=== PATIENT | male | born 1940 | race Caucasian/White ===

== ENCOUNTER 2018-06-27 05:28 | Inpatient (IN) | payer OTHER ==
[2018-06-18 12:57] LABS: URINE BILIRUBIN NEGATIVE (Negative); URINE BLOOD NEGATIVE (Negative); URINE CLARITY CLEAR; URINE COLOR YELLOW; URINE GLUCOSE-RANDOM* NEGATIVE (Negative); URINE KETONES NEGATIVE (Negative); URINE LEUKOCYTES-REFLEX NEGATIVE (Negative); URINE NITRITE-REFLEX NEGATIVE (Negative); URINE PROTEIN (DIPSTICK) NEGATIVE (Negative); URINE SPECIFIC GRAVITY >= 1.030 (1.005-1.035); URINE UROBILINOGEN 0.2 E.U./dl (0.2-1.0)
[2018-06-18 12:58] LABS: HEMOGLOBIN 14.8 gm/dL (14.0-18.0); MCH 32.5 pg (26.0-34.0); MCHC 33.5 g/dL (28.0-37.0); MCV 96.9 fL (80.0-100.0); RBC 4.54 mil/uL (4.50-6.00); RDW 13.2 % (10.5-14.5); WBC 6.3 thou/uL (4.0-11.0)
[2018-06-18 13:06] LABS: ALBUMIN 4.2 g/dL (3.4-5.0); CALCIUM 9.7 mg/dL (8.5-10.1); CREATININE 1.2 mg/dL (0.7-1.3); POTASSIUM 4.5 mmol/L (3.5-5.1)
[2018-06-18 13:13] LABS: INR 1.1
[~2018-06-27] VITALS: Ht 180.3 cm; Wt 85.7 kg
--- NOTE | ~2018-06-27 | O ---
[facility] [place] [address] OPERATIVE REPORT Name: SUSAN TORRES Room #: 458-P [facility] IN M.R.#: [id number] Admission: 06/27/18 ������������������ Attend Phys: Isaiah Maher MD Discharge: ������������������ Date of : 44 Report #: [id number] THIS REPORT FOR: //name// CC: Alessandro Maher PREOPERATIVE DIAGNOSES: 1. Right knee osteoarthritis. 2. Left knee osteoarthritis. POSTOPERATIVE DIAGNOSES: 1. Right knee osteoarthritis. 2. Left knee osteoarthritis. PROCEDURES: 1. Right total knee arthroplasty with Navio robotic assistance. 2. Intraarticular cortisone injection in the left knee. SURGEON: Isaiah Maher MD KITCHEN MECHANIC: Jennifer Pandey PA-C. INDICATIONS FOR ASSISTANCE: Throughout the case, extensive retraction and manipulation of the knee was required. This was afforded to me by my admissions assistant. ANESTHESIA: LMA with an adductor canal block. IMPLANTS: [employer] size 7 Legion cobalt chrome posterior stabilized femur, a size 5 tibia, a size 11 highly constrained polyethylene and a size 35 patella. TOURNIQUET TIME: 70 minutes. ESTIMATED BLOOD LOSS: 25 mL. COMPLICATIONS: None. SPECIMENS: None. CONDITION UPON LEAVING THE OPERATING ROOM: Stable. INDICATION FOR PROCEDURE: The patient is a 78-year-old gentleman with bilateral knee osteoarthritis. His right knee has failed conservative measures and he elected for right total knee arthroplasty. In addition, he requested intraarticular cortisone injection of the left knee while in the operating room. DESCRIPTION OF PROCEDURE: Risks, benefits, alternatives and complications were [facility] [address] [place] [address] OPERATIVE REPORT Name: SUSAN TORRES Room #: 458-P ADM IN M.R.#: [id number] Admission: 06/27/18 ������������������ Attend Phys: Isaiah Maher MD Discharge: ������������������ Date of : 42 Report #: [id number] discussed in detail with the patient including but not limited to risk of anesthesia, risk of damage to nerves, arteries and blood vessels, risk for infection and bleeding, risk for continued knee pain and need for reoperation. Informed consent was obtained from the patient. His right knee was appropriately marked in the preoperative holding area. IV Ancef was given for preoperative antibiotics. He was brought to the operating room and placed in the supine position on the operating room table. LMA anesthesia was induced without complication. Tourniquet was placed on the right thigh. Right lower extremity was prepped and draped in normal sterile fashion. Timeout was performed properly identifying the patient and procedure as well as the instrumentation. All in the operating room were in agreement. Right lower extremity was exsanguinated. Tourniquet was inflated. Tourniquet time was 70 minutes. Standard midline approach to the knee was made with a 10 blade through the skin. Dissection was taken down sharply to the fascia. Deep flaps were developed medially and laterally. A fresh 10 blade was used to make a medial parapatellar arthrotomy and the knee was inspected. There was severe medial compartment osteoarthritis with mild patellofemoral and lateral compartment involvement, so it was decided to proceed with total knee arthroplasty. ACL and PCL were removed sharply. Reference pins were placed in the femur and the tibia for the Navio system and the knee was digitally mapped using the [employer] robotic system. Intraoperative plan was made and we sized a size 7 femur, a size 5 tibia, a size 11 polyethylene. After acceptance of the intraoperative plan, the distal femoral cut was made with the Navio bur. The distal femoral cutting block was then placed and the anterior, posterior and chamfer cuts were made. Attention was turned to the tibia. Remainder of the menisci removed with Bovie cautery. Tibial resection guide was then made using the tibial resection guide placed with the Navio system. Tibial resection was made. Flexion and extension gaps were then checked and found to have good balance medially but some laxity laterally. It was felt this could be made up for with a highly constrained implant as needed. The tibia was sized, found to be a size 5. A size 5 tibial trial was placed, pinned and punched and a size 7 femoral trial was placed and the box cut was made. This was then trialed with a size 11 standard polyethylene. Knee was taken through range of motion, found to have good balance medially but 4 mm of laxity laterally compared to 1 medially and it was felt that a highly constrained polyethylene will be needed. This was then trialed with a highly constrained size 11 and found to have good balance. A 9 mm was then taken off the posterior surface of the patella and a size 35 patellar trial button was placed. Knee was taken through range of motion, found to be stable, found to have good patellar tracking. Trial components were removed. Bone ends were thoroughly irrigated with normal saline. A final size 5 tibia, a size 7 Legion cobalt chrome posterior stabilized femur and a size 35 patella were cemented in place using standard cementation techniques. While the cement cured, a periarticular injection consisting of morphine, ropivacaine, epinephrine and Toradol was placed around the knee joint capsule. After the cement cured, the tourniquet was deflated. Hemostasis was obtained with Bovie cautery. A final size 11 highly constrained polyethylene was placed. Alyssa chavira [facility] [address] [place] [address] OPERATIVE REPORT Name: SUSAN TORRES Room #: 458-P [facility] IN [facility]#: [id number] Admission: 06/27/18 ������������������ Attend Phys: Isaiah Maher MD Discharge: ������������������ Date of : 42 Report #: [id number] vancomycin was placed deep in the joint. The fascia was closed with 0 Vicryl, skin was closed with 2-0 Vicryl and 3-0 Monocryl. Dermabond and a ONEL dressing was applied and 80 mg of Depo-Medrol was then injected into the left knee joint under sterile conditions. The patient tolerated this procedure well and went to the recovery room under care of Anesthesia postoperatively. ��������������������������������������������� ���������������������������������������� By: ��������������������������������������������� 1655 1949 Isaiah Maher MD /nt
[~2018-06-27 05:28] MED LIST: ACYCLOVIR 800800 MG PO; CALCIUM 500 +1 EAC5 PO; FISH OIL 1,001000 M2 PO; GLUCOSAMINE CH1 EAC2 PO; IRON325 PO; L-LYSINE500 M1 PO; LIPITOR 20 MG T20 M1 PO; UNICOMPLEX M TA1 TA1 PO; VERAPAMIL ER180 M1 PO; VITAMINC500 PO
[2018-06-27 13:00] VITALS: BP 149/74
[2018-06-27 18:04] VITALS: BP 124/60
[2018-06-27 18:28] VITALS: BP 121/59
[2018-06-27 19:54] VITALS: BP 137/68
[2018-06-27 20:40] VITALS: BP 130/63
[2018-06-28 04:38] VITALS: BP 121/66
[2018-06-28 05:52] LABS: HEMATOCRIT 37.6 % (42.0-52.0); HEMOGLOBIN 13.1 gm/dL (14.0-18.0); MCH 33.5 pg (26.0-34.0); MCHC 34.8 g/dL (28.0-37.0); MCV 96.3 fL (80.0-100.0); RBC 3.91 mil/uL (4.50-6.00); RDW 12.7 % (10.5-14.5); WBC 11.3 thou/uL (4.0-11.0)
--- NOTE | 2018-06-28 06:36 | NUR ---
Assumed care at 1845. Pt resting in bed. VSS. Circulation to right leg intact. Pt denies any pain. He hasnt left the bed with me. Dressing on right knee CDI with ONEL dressing intact. He has SCDs and zachery horse. No identified needs at the moment. Will continue to monitor.
[2018-06-28 07:22] VITALS: BP 118/54
[2018-06-28] MEDS ORDERED: TRI-BUFFERED A325 M1 PO (12:24)
[2018-06-28] MEDS ORDERED: NEURONTIN 300300 M1 PO (12:24)
--- NOTE | 2018-06-28 14:04 | NUR ---
PT ADMITTED RELATED TO RIGHT TOTAL KNEE REPLACEMENT. CM REVIEWED CHART AND SPOKE WITH CARE TEAM. CM MET WITH PT AT BEDSIDE THIS DAY. PT IS A&O X4. CM RLE INTRODUCED. PT INDICATED HE LIVES IN A HOUSE WITH HIS WITH 3 STEPS TO ENTER AND NO STEPS INSIDE. PT INDICATED ALL NEEDS ON 1 LEVEL UPON DC. PT INDICATED HE IS SET UP WITH OP PT AT [facility] TOMORROW. PT WAS ISSUED A FWW FOR HOME USE BY [employer]. IT IS ANTIPATED THAT PT WILL BE MEDICALLY STABLE TO DISHCARGE HOME THIS DAY.
[2018-06-28 15:09] VITALS: BP 118/54
--- NOTE | 2018-06-28 16:45 | NUR ---
PATIENT DOING VERY WELL POSTOPERATIVELY. RIGHT KNEE ONEL DRESSING INTACT AND COMPRESSED. 2 STITCHES BELOW DRESSING OOZING SMALL AMOUNT OF BLOOD. CLEANED AND APPLIED GAUZE AND OPSITE. TOLERATING REGULAR DIET. VOIDING WITHOUT DIFFICULTY. AMBULATED WITH PHYSICAL THERAPY WITH USE OF WALKER AND DID VERY WELL. HARSH WITH PHYSICAL THERAPY APPROVED DISCHARGE. HAD MINIMAL PAIN DUE TO ADDUCTER BLOCK. DISMISSED IN STABLE CONDITION.
== END 2018-06-28 15:30 | disposition home or self-care (01) | DRG 470 ==
LOC: PRE → 4W 05:28 → TBA 05:28 → PRE 05:50 → 4W 18:08 → ENTRNSPT 06-28 16:00
PROVIDERS: ADMIT Orthopaedic Surgery
DX: M17.0 Bilateral primary osteoarthritis of knee (principal); Z79.82 Long term (current) use of aspirin; Z79.899 Other long term (current) drug therapy
CPT/HCPCS: 10047; 50010; 50101; 50415; 50954; 51130; 51225; 53000; 53078; 53364; 54118; 56527; 56528; 57095; 57103; 57109; 57110; 57113; 57127; 62110; 62900; 70005

== ENCOUNTER → 2018-07-04 | Outpatient (CLI) | payer OTHER ==
[~2018-07-04] MED LIST changes: +NEURONTIN 300300 M1 PO; +NORCO 5-325 TA1 EACH PO; +TRI-BUFFERED A325 M1 PO
== END ==
LOC: ULTRA 13:21
DX: M79.89 Other specified soft tissue disorders (principal); M79.604 Pain in right leg; Z96.651 Presence of right artificial knee joint

== ENCOUNTER 2018-07-06 09:47 | Day surgery (SDC) | payer OTHER ==
[~2018-07-06] VITALS: Ht 180.3 cm; Wt 84.4 kg
[~2018-07-06 09:47] MED LIST changes: -NORCO 5-325 TA1 EACH PO
[2018-07-06 10:27] LABS: HEMATOCRIT 35.7 % (42.0-52.0); HEMOGLOBIN 12.4 gm/dL (14.0-18.0); MCH 33.2 pg (26.0-34.0); MCHC 34.7 g/dL (28.0-37.0); MCV 95.9 fL (80.0-100.0); RBC 3.72 mil/uL (4.50-6.00); RDW 13.5 % (10.5-14.5); WBC 6.5 thou/uL (4.0-11.0)
[2018-07-06 10:39] LABS: PROTIME 10.4 Seconds (9.3-11.4)
[2018-07-06 10:45] LABS: CALCIUM 9.2 mg/dL (8.5-10.1); CREATININE 1.1 mg/dL (0.7-1.3); POTASSIUM 3.9 mmol/L (3.5-5.1)
[2018-07-06 10:50] VITALS: BP 138/70
[2018-07-06] MEDS ORDERED: NORCO 5-325 TA1 EACH PO (14:12)
[2018-07-06 14:14] VITALS: BP 138/70
--- NOTE | 2018-07-07 08:17 | O ---
[facility] [place] [address] [place] [address] OPERATIVE REPORT Name: SUSAN TORRES Room #: DEP [facility]..#: [id number] Admission: 07/06/18 ������������������ Attend Phys: Isaiah Maher MD Discharge: 07/06/18 ������������������ Date of : 42 Report #: [id number] THIS REPORT FOR: //name// CC: Alessandro Maher DATE OF SERVICE: 07/06/2018 PREOPERATIVE DIAGNOSIS: Right knee postoperative hematoma, status post total knee arthroplasty. POSTOPERATIVE DIAGNOSIS: Right knee postoperative hematoma, status post total knee arthroplasty. PROCEDURE: I and D right total knee arthroplasty hematoma. SURGEON: Isaiah Maher MD. STRAIGHT KNIFE CUTTER MACHINE: Jennifer Pandey PA-C. ANESTHESIA: LMA. ESTIMATED BLOOD LOSS: 25 mL. COMPLICATIONS: None. SPECIMENS: Cultures were taken x 2. CONDITION UPON LEAVING THE OPERATING ROOM: Stable. INDICATIONS FOR PROCEDURE: The patient is a 78-year-old gentleman who is about 9 days out from a total knee arthroplasty on the right knee, presented to the clinic with drainage and some wound dehiscence from his inferior portion of his knee. He had an exam consistent with hematoma and after discussion with he and his family, he elected for evacuation of the right knee hematoma. DESCRIPTION OF PROCEDURE: Risks, benefits, alternatives, complications were discussed in detail with the patient including but not limited to risk of anesthesia, risk of damage to nerves, arteries, blood vessels, risk for infection, bleeding, risk for continued knee pain, drainage and need for reoperation. Informed consent was obtained from the patient. The right knee was appropriately marked in the preoperative holding area. IV Ancef was given for preoperative antibiotics. He was brought to the operating room and placed in supine position on operating room table. LMA anesthesia was induced without complication. Right lower extremity was prepped and draped in normal sterile fashion. Timeout was performed properly identifying the patient and procedure [address] [address] OPERATIVE REPORT Name: SUSAN TORRES Room #: DEP [facility] [place]#: [id number] Admission: 07/06/18 ������������������ Attend Phys: Isaiah Maher MD Discharge: 07/06/18 ������������������ Date of : 42 Report #: [id number] as well as the instrumentation. All in the operating room were in agreement. The previous incision was then opened with a 10 blade and there was an obvious hematoma in the subcuticular tissues. There was a small opening in the fascial repair and this was opened slightly more with 10 blade and the joint was exposed. The knee was then thoroughly irrigated with normal saline. The cultures of this were taken. The fascia was closed with 0 Vicryl, skin was closed with 2-0 Vicryl, 3-0 nylon and a ONEL dressing was applied. The patient tolerated this procedure well and went to recovery room under care of anesthesia postoperatively. ��������������������������������������������� <ELECTRONICALLY SIGNED> ���������������������������������������� By: Isaiah Maher MD ��������������������������������������������� 07/07/18 0817 1528 1555 Isaiah Maher MD /nt
== END 2018-07-06 14:50 | disposition home or self-care (01) ==
LOC: OR 09:47 → TBA 09:57 → OR 14:50
PROVIDERS: Physician Assistant Surgical
DX: M96.840 Postprocedural hematoma of a musculoskeletal structure following a musculoskeletal system procedure (principal); Z96.651 Presence of right artificial knee joint; I10 Essential (primary) hypertension; E78.00 Pure hypercholesterolemia, unspecified; G47.33 Obstructive sleep apnea (adult) (pediatric); Z98.890 Other specified postprocedural states; Z85.46 Personal history of malignant neoplasm of prostate; Z85.828 Personal history of other malignant neoplasm of skin; Z86.711 Personal history of pulmonary embolism; Z79.01 Long term (current) use of anticoagulants; Z79.899 Other long term (current) drug therapy
CPT/HCPCS: 50010; 50101; 50415; 53078; 56527; 56528; 57095; 57103; 59999; 62110; 62900; 70005